=== PATIENT | male | born 1940 | race Caucasian/White ===

== ENCOUNTER → 2016-04-12 | Day surgery (SDC) | payer MEDICARE ==
[~2016-04-12] VITALS: Ht 180.3 cm; Wt 103.5 kg
[~2016-04-12] MED LIST: *morphine SULFATE 8 MG/ML PERIprocedure ONLY ONE; ACETAMINOPHEN 1000 MG/100 ML VIAL IV ONE; ACETAMINOPHEN/HYDROcodone 325 MG/5 MG TAB PO PRN; BUPIVACAINE/EPINEPHRINE 0.25% PF 30 ML VIAL ONE; DEXAMETHASONE SOD PHOS 4 MG/ML VIAL ONE; DO NOT ADM ANY ANTICOAGULANT DRUGS XX PRN; FAMOTIDINE 20 MG/2 ML VIAL ONE; HYDR-3533 PO; HYDROmorphone HCL PF 1 MG/ML VIAL IV PRN; INSULIN HUMAN REGULAR 1,000 UNITS/10 ML VIAL SQ PRN; LABETALOL HCL 100 MG/20 ML VIAL ONE; LACTATED RINGER'S 1000 ML INJ 1,000 ML IV ONE; LACTATED RINGER'S 1000 ML IV SCH; METOPROLOL TARTRATE 25 MG TAB PO PRN; MIDAZOLAM HCL 2 MG/2 ML VIAL ONE; NEOSTIGMINE 3 MG/3 ML SYR IV ONE; ONDANSETRON HCL 4 MG/2 ML VIAL IV PRN; ONDANSETRON HCL 4 MG/2 ML VIAL IV PUSH ONE; PHENYLEPH/NS 1000 MCG/10 ML SYR IV ONE; PROPOFOL 200 MG/20 ML AMP IV ONE; Post-op Orders (for Pharmacy) MISC XX ONE; SODIUM CHLORID 0.9% 500 ML IV SCH; SODIUM CHLORIDE 0.9% FLUSH 5 ML FLUSH IVF PRN; SODIUM CHLORIDE 0.9% FLUSH 5 ML FLUSH IVF SCH; ZANT150T2 PO; ceFAZolin 2 GM PREMIX 50 ML IV SCH; ePHEDrine/NS 25 MG/5 ML SYR IV ONE; fentaNYL CITRATE 250 MCG/5 ML AMP ONE
[2016-04-12 07:00] VITALS: BP 142/77; PULSE 73; RESP 18; TEMP 97.8; O2SAT 98
--- NOTE | 2016-04-12 07:13 | RADRPT ---
EXAM DATE/TIME: 04/12/2016 06:43 [place] COMPARISON: No previous studies available for comparison. INDICATIONS : Evaluate for any pulmonary disease as patient is pre-op for lap yasmine. MEDICAL HISTORY : None. SURGICAL HISTORY : None. ENCOUNTER: Initial ACUITY: 1 day PAIN SCORE: 0/10 LOCATION: Bilateral chest FINDINGS: A single view of the chest demonstrates the lungs to be symmetrically aerated without evidence of mas s, infiltrate or effusion. The cardiomediastinal contours are unremarkable. Osseous structures are intact. CONCLUSION: Normal examination. Lon Ash MD on April 12, 2016 at 7:11 Board Certified Radiologist. This report was verified electronically.
[2016-04-12 07:14] LABS: AUTOMATED NEUTROPHIL # 4.6 TH/MM3 (1.8-7.7); BASOPHIL # 0.1 TH/MM3 (0-0.2); EOSINOPHIL # 0.1 TH/MM3 (0-0.4); EOSINOPHIL % 1.7 % (0.0-4.0); HEMATOCRIT 39.6 % (39.0-51.0); HEMO FLAGS DIFF FINAL; LYMPH % 24.3 % (9.0-44.0); LYMPHOCYTE # 1.8 TH/MM3 (1.0-4.8); MEAN CELL VOLUME 88.6 FL (80.0-100.0); MEAN CORPUSCULAR HEMOGLOBIN 30.8 PG (27.0-34.0); MEAN CORPUSCULAR HGB CONC 34.8 % (32.0-36.0); PLATELET COUNT 204 TH/MM3 (150-450); RED BLOOD COUNT 4.47 MIL/MM3 (4.50-5.90); RED CELL DISTRIBUTION WIDTH 12.7 % (11.6-17.2); WHITE BLOOD COUNT 7.3 TH/MM3 (4.0-11.0)
--- NOTE | 2016-04-12 09:43 | PD.OP ---
Operative Report Date of Surgery: Apr 12, 2016 Preoperative Diagnosis: severe GERD with chronic cough Postoperative Diagnosis: same Procedure: lap Wayne Fundoplication Anesthesia: geta Surgeon: Sanket Cardoso Exhaust Emissions Automotive Technician(s): Dr Rodri Farias Operation and Findings: No HH. 360 degree fundoplication around 50 Polish bougie. EBL 10ml. Atrophic/small L lateral lobe of liver. Sanket Cardoso MD Apr 12, 2016 09:43
[2016-04-12 12:45] VITALS: BP 137/75; PULSE 75; RESP 18; TEMP 98.1; O2SAT 96
--- NOTE | 2016-04-12 23:39 | EKG ---
Date Performed: 04/12/2016 Time Performed: 07:12:18 PTAGE: 75 years EKG: Sinus rhythm NORMAL ECG PREVIOUS TRACING : 09/28/1996 20.42 Compared to prior tracing no significant change DOCTOR: Jose Ravi Interpretating Date/Time 04/12/2016 23:38:06
--- NOTE | 2016-04-13 09:30 | MP ---
cc: LUIS MIGUEL SUERO M.D., DAVID G. M.D. WHITE, R. STEVEN M.D. CRAVEN, JAMES M. M.D. DATE OF SURGERY: 04/12/2016 PREOPERATIVE DIAGNOSIS Severe gastroesophageal reflux disease with extraesophageal symptom of chronic cough. POSTOPERATIVE DIAGNOSIS Severe gastroesophageal reflux disease with extraesophageal symptom of chronic cough. PROCEDURE Laparoscopic Wayne fundoplication. SURGEON Dr. Sanket Cardoso INDUSTRIAL REAL ESTATE AGENT SURGEON Dr. Rodri Farias ANESTHESIA General. INDICATIONS This is a very pleasant 75-year-old gentleman who was sent to me in consultation by Dr. Luis Miguel Suero for evaluation of chronic cough related to severe esophageal reflux disease. The patient has undergone thorough evaluation by GI, pulmonary and ENT for this chronic cough which has been present for many years and has increased in intensity recently. He had undergone a Kaplan chip study and had abnormal DeMeester score which is consistent with severe acid reflux disease. He had normal manometry. He had negative pulmonary and ENT workup. Recommendations were made for laparoscopic antireflux surgery. INTRAOPERATIVE FINDINGS No evidence of hiatal hernia. 360 degree fundoplication performed around a 50-Chilean bougie. Additional incidental finding of a relatively atrophic very small left lateral lobe of the liver. ESTIMATED BLOOD LOSS Less than 10 mL. DESCRIPTION OF PROCEDURE IN DETAIL The patient was identified as Reece Pereira, taken to the operating room and placed in supine position. Sequential compression devices were placed on bilateral lower extremities. Following induction of adequate general endotracheal anesthesia the patient's abdomen was prepped and draped in the usual sterile fashion with Betadine. A timeout procedure was performed. Following completion of the timeout procedure to everyone's satisfaction within the room, 0.25% Marcaine with epinephrine was placed at each incision site. About 2-3 cm above the umbilicus 0.25% Marcaine with epinephrine was placed and a 2-3 cm vertical incision was made with a scalpel. Dissection continued posteriorly to the level of the midline fascia which was incised vertically and entry into the peritoneal cavity was facilitated with the surgeon's finger. The [employer] balloon Dhaval trocar was placed in the peritoneal cavity, its balloon inflated with CO2 insufflation until a level of 15 mmHg ensued. The patient was placed in a steep reverse Trendelenburg position and four upper abdominal 5 mm trocars were placed in the peritoneal cavity direct laparoscopic view after incision of the skin with a scalpel. Immediately identified was this atrophic small left lateral lobe of the liver which did not need to be retracted due to its small size and therefore no Micaela-Flex liver retractor was required, so the right lateral port was left unused. Attention was turned first to opening the gastrohepatic ligament which was performed using the Harmonic scalpel. This allowed for identification of the right diaphragmatic crura and gentle dissection of the peritoneal attachments from the crura and to the identified esophagus and across the anterior part of the esophagus was performed. Attention was then turned to taking down the short gastric vessels and this was performed using the Harmonic scalpel along the greater curvature. The fundus of the stomach was in close proximity to the superior pole of the spleen and care was taken to relieve its attachments there with the Harmonic scalpel without injuring the spleen or the stomach. The left side diaphragmatic crura was able to be identified and its peritoneal attachments taken down using the Harmonic scalpel, and actually developing a posterior window the esophagus was more straight forward from the patient's left side than the right. Ultimately from the right side the Micaela-Flex piña's hook retractor was able to be placed through a posterior window above the GE junction lifting the esophagus and the GE junction anteriorly allowing for further opening of the window using the Harmonic scalpel. The posterior vagus nerve was in direct proximity to the posterior wall of the esophagus and left alone. The fundus of the stomach which had been mobilized was brought through the posterior window without any tension. The nurse electro mechanical technician then placed an esophageal bougie starting at a 36-Chilean going to 40, 44, 48 and then 50-Chilean bougie. The 50-Chilean bougie was left in position and the fundoplication was performed using the Ethicon suture educational/development assistant device using 0 Ethibond sutures. The upper two sutures full-thickness stomach on either side of the anterior wall esophageal partial-thickness bite. The inferior most suture was placed just full-thickness stomach to full-thickness stomach. Upon placing that suture a small arterial bleeder in the wall of the fundoplication wrap occurred and pressure was held. Despite pressure continued ooze occurred and a fourth suture was placed for hemostasis and this was effective. A small amount of bloody drainage was suctioned out. Photographs were taken of the completed repair. The remaining local anesthetic was placed in the area of dissection. There was no ooze, no further bleeding noted. The trocars were removed under direct visualization. There was no evidence of bleeding from the trocar sites. The abdomen was desufflated through the supraumbilical port which was then removed after actively desufflating the abdomen. The supraumbilical fascial defect was approximated with interrupted 0 Vicryl sutures. Port sites were irrigated with saline and closed with 4-0 Monocryl subcuticular sutures. Dressings were applied with Mastisol and half-inch brown Steri-Strips. The patient tolerated the procedure without apparent complication. Sponge, needle and instrument counts were correct at the end of the case. MD RAINE Blandon/NANCIE /9:47 AM /9:09 AM
== END | disposition home or self-care (01) ==
LOC: HSDC 06:04 → EDSTATUS 08:00
PROVIDERS: ATTEND Surgery Trauma Surgery
DX: K21.9 Gastro-esophageal reflux disease without esophagitis (principal); Z01.810 Encounter for preprocedural cardiovascular examination
CPT/HCPCS: 00790; 43280; 71010; 85025; 93005; J0131; J0690; J1100; J2250; J2270; J2370; J2405; J2710; J3010; J7120